=== PATIENT | male | born 1950 | race Caucasian/White ===

== ENCOUNTER 2022-10-28 07:00 | Observation (INO) | payer OTHER, MEDICARE, SELFPAY ==
[2022-10-28] VITALS (33 sets, daily range): BP systolic 92–202; BP diastolic 51–104; PULSE 52–70; RESP 10–19; TEMP 36–37; O2SAT 90–98
--- NOTE | 2022-10-28 06:45 | RT.EKG_ITS ---
APPROVED REPORT Exam: Resting ECG Reason for Exam: ams Patient Location: E HR:58 bpm ECG Measurements Heart Rate 58 AXIS NE 194 P 24 QRSd 97 QRS -33 QT 424 T 44 QTc 417 Conclusion Sinus bradycardia...rate< 60 Left ventricular hypertrophy...multiple voltage criteria sinus clif[place], left axis
--- NOTE | 2022-10-28 07:00 | DI.RAD_ITS ---
Exam(s) XR CHEST 1V IN DI DEPT EXAM: XR CHEST 1V IN DI DEPT CLINICAL HISTORY: AMS. TECHNIQUE: 2D digital imaging was performed. COMPARISON: MR MR BRAIN WO CONTRAST from 12/05/[address] HEAD WO CONTRAST from 12/28/2016 FINDINGS: Single AP portable view. Heart size is mildly enlarged. Mediastinum not widened. Symmetrically increased markings are noted throughout both lung tran, not associated with obvious pleural effusions. There is also platelike atelectasis in the right lung base. Some confluent infiltrate is seen adjacent to the minor fissure in the right upper lobe. Nonacute right rib fracture noted IMPRESSION: Mild cardiomegaly. Increased interstitial markings throughout both lung tran. Probable element of pulmonary edema cannot exclude infectious etiology. There are no obvious pleural effusions evident on this single portable view. DATA REPOSITORY: RADIATION DOSE DELIVERED:
--- NOTE | 2022-10-28 07:00 | DI.CT_ITS ---
Exam(s) CT HEAD WO EXAM: CT HEAD WO CLINICAL HISTORY: altered mental status, on AC. TECHNIQUE: Imaging Protocol: Axial computed tomography images with coronal and sagittal reformatted images were created and reviewed COMPARISON: CT CT HEAD WO CONTRAST from 12/28/2016outside institution. Prior outside institution MR I also reviewed. FINDINGS: There are no skull fractures. There is no fluid in the visualized paranasal sinuses. There is no evidence of intracranial hemorrhage, mass effect, or shift of midline structures. There are no extra-axial fluid collections. Ventricular size is slightly prominent but not at a proportion when compared to the overlying cortical sulci. IMPRESSION: No acute intracranial findings on this noninfused CT scan of the brain. Clinically indicated follow-up MRI with diffusion imaging can be performed Called by myself to ER provider. RADIATION DOSE DELIVERED: 792.17mGy.cm Total DLP DATA REPOSITORY: All CT scans at this facility are submitted to the National Radiology Data Registry (NRDR) Dose Index Registry (DIR) with the [employer] ([employer]). RADIATION OPTIMIZATION: All CT scans at this facility use at least one of these dose optimization te chniques: automated exposure control; mA and/or kV adjustment per patient size (includes targeted exa ms where dose is matched to clinical indication); or iterative reconstruction.
--- NOTE | 2022-10-28 07:12 | W.ED.GENAD ---
Discharge Plan Discharge Details Chief Complaint: AMS/LOC Primary Care Provider: Luis Fortune ED Provider: Nawaf Stone Home Meds and New Rx's Prescriptions: No Action citalopram 10 mg tablet 10 mg PO DAILY Eliquis 5 mg tablet 5 mg PO BID levothyroxine 137 mcg capsule 137 mcg PO DAILY metoprolol succinate 25 mg tablet extended release 24 hr 25 mg PO DAILY pravastatin 20 mg tablet 20 mg PO DAILY quetiapine [Seroquel] 50 mg tablet 50 mg PO QHS quetiapine [Seroquel] 25 mg tablet 25 mg PO DAILY PRN tamsulosin 0.4 mg capsule 0.4 mg PO DAILY Medical Decision Making 72-year-old male history of Alzheimer's dementia, hypothyroidism, found with decreased responsiveness by his this morning, last seen normal at 11 PM, similar event in the past per without explanation, no recent illness no recent hospitalization no recent change in medications, no trauma, patient not responding to verbal stimuli, he is responding to painful stimuli as he reacted when EMS cardiac leads were removed patient responded with ouch and moved his extremities towards the painful stimulus; patient is afebrile nontoxic, hemodynamically stable, no focal deficits noted, does appear to have slightly dry oral mucosa, no external signs of trauma; differential is broad consider worsening baseline dementia versus nonconvulsive seizure versus dehydration versus infectious etiology such as viral illness pneumonia or UTI must also consider intracranial hemorrhage given anticoagulation, lower suspicion for encephalitis or meningitis, lower suspicion for CVA, must also consider behavioral versus hypothyroidism. Will obtain screening labs EKG chest x-ray CT head toxicologic labs troponin urinalysis TSH T4, light fluid given signs of mild dehydration, disposition pending reassessment of patient HPI General Date/Time Provider Initiated Documentation: 10/28/22 07:05. HPI Narrative: 72-year-old male history of Alzheimer's, hypothyroidism, presents with decreased responsiveness found by to be asleep slumped over in his chair, last seen normal around 11 PM last night. Per patient has had events like this in the past. No recent injuries no recent illness no sick contacts. No changes in medication Related Data Home Medications Medication Instructions Recorded Confirmed apixaban 5 mg tablet (Eliquis) 5 mg PO BID 05/23/22 citalopram 10 mg tablet 10 mg PO DAILY 05/23/22 levothyroxine 137 mcg capsule 137 mcg PO DAILY 05/23/22 metoprolol succinate 25 mg 25 mg PO DAILY 05/23/22 tablet,extended release 24 hr pravastatin 20 mg tablet 20 mg PO DAILY 05/23/22 quetiapine 25 mg tablet (Seroquel) 25 mg PO DAILY PRN 05/23/22 quetiapine 50 mg tablet (Seroquel) 50 mg PO QHS 05/23/22 tamsulosin 0.4 mg capsule 0.4 mg PO DAILY 05/23/22 Review of Systems Narrative: Review of Systems Constitutional: Altered mental status Eyes: negative ENT: negative Cardiovascular: negative Respiratory: negative Gastrointestinal: negative : negative Musculoskeletal: negative Skin: negative Neurologic: Altered mental status Psych: negative [facility] Medical History (Updated 05/21/22 @ 14:48 by Vangie Barnett) Alzheimer disease Calculus (=stone) Pulmonary embolus Sigmoidoscopy performed Thyroid disease Surgical History (Updated 05/21/22 @ 14:48 by Vangie Barnett) H/O thumb surgery H/O wrist surgery History of esophagogastroduodenoscopy (EGD) Hx of colonoscopy Hx of umbilical hernia repair S/P cystoscopy Social History (Updated 05/23/22 @ 14:22 by Emilee Pollard RN, RN) Smoking/Tobacco Use Status: Former Tobacco Use Smoking risk assessment performed?: Yes Alcohol Intake: former Drug use: Current Sobriety Substance use type: marijuana Household members: spouse Exam Narrative Exam Narrative: Physical Examination General: Eyes closed, not responding to verbal stimuli HEENT: normocephalic, atraumatic; PERRL, EOM intact, conjunctiva normal; no nasal discharge; moist mucous membranes, slight drying of oral mucosa Neck: supple, trachea midline; full ROM Chest: normal to inspection Respiratory: normal respiratory effort, speaking in full sentences, clear to auscultation, no wheezing, rales or rhonchi Cardiac: regular rate, regular rhythm, S1S2 intact, no murmurs rubs or gallops GI: abdomen soft, non-tender, non-distended; no palpable mass or hepatosplenomegaly Skin: no lesions, rashes or trauma appreciated Neuro: Not responding to verbal stimuli not following commands, patient is responding to painful stimuli will say ouch and move extremities
[2022-10-28] MEDS: Normal Saline 500 ML 1000 ML IV (07:23)
[2022-10-28 07:31] LABS: BE (Venous) 3 mmol/L (-2-3); HCO3 (Venous) 29 mmol/L (23-28); O2 Sat (Venous) 53 %; TCO2 (Venous) 26 mmol/L (24-29); pCO2 (Venous) 50 mmHg (41-51); pH (Venous) 7.37 (7.31-7.41); pO2 (Venous) 31 mmHg
[2022-10-28 07:32] LABS: Abs Immature Grans 0.02 10^3/uL (0.0-0.06); Absolute Basophil Count 0.01 10^3/uL (0.0-0.2); Absolute Lymphocyte Count 1.08 10^3/uL (1.2-3.4); Absolute Monocyte Count 0.66 10^3/uL (0.1-0.8); Absolute Neutrophil Count 6.43 10^3/uL (1.2-6.7); Basophils % 0.1; HCT 43.4 % (40.0-50.0); HGB 14.3 g/dL (13.5-17.5); Immature Grans % 0.2; Lymphocytes % 13.2; MCH 30.2 pg (27.0-33.0); MCHC 32.9 % (32.0-36.0); MCV 92 fL (80-95); Neutrophils % 78.5; Platelet Count 160 10^3/uL (130-400); RBC 4.74 10^6/uL (4.36-5.78); RDW 13.5 % (11.8-14.1); RDW-SD 45.8 fL
--- NOTE | 2022-10-28 07:35 | W.EDPROG ---
Date of service: 10/28/22 Time of Service: 07:35 Medical Decision Making This patient was signed out to me. Please see previous notes for H&P and initial eval. In brief, 72yo M with hx dementia presenting with altered mental status. Responsive to painful stimuli; not responsive to voice which is not his baseline. No clear etiology suggested from history. Pending labs, urine, and head CT. Labs reviewed as below, CBC & CMP unremarkable, serum toxicology negative, troponin negative, CK slightly elevated (unclear significance), UA suggestive of UTI. Head CT independently reviewed; no intracranial hemmoraghe, agree with radiology read below. CXR independently reviewed, diffuse infiltrate with no focal pneumonia, agree with radiology read below. Will treat with IV ceftriaxone for UTI. On reassesment patient remains significantly altered from baseline; alert, eyes open, but will not respond to voice or follow commands. Discussed with hospitalist and admitted to medicine service, awaiting transfer to the floor. Imaging Data Radiologic Study: Imaging: CT Scan Radiologist's impression: IMPRESSION: No acute intracranial findings on this noninfused CT scan of the brain. Clinically indicated follow-up MRI with diffusion imaging can be performed Radiologic Study #2: Imaging: X-Ray Radiologist's impression: IMPRESSION: Mild cardiomegaly.? Increased interstitial markings throughout both lung tran.? Probable element of pulmonary edema cannot exclude infectious etiology.? There are no obvious pleural effusions evident on this single portable view Lab Data Lab results reviewed: Yes I reviewed the patient's lab results. Labs: 10/28/22 07:53 Urine - Reflex from Ua Urine Culture - Pending Laboratory Tests Range/Units 10/28/22 10/28/22 10/28/22 07:18 07:23 07:23 WBC (4.4-10.8) 10^3/uL RBC (4.36-5.78) 10^6/uL Hgb (13.5-17.5) g/dL Hct (40.0-50.0) % MCV (80-95) fL MCH (27.0-33.0) pg MCHC (32.0-36.0) % RDW (11.8-14.1) % Plt Count (130-400) 10^3/uL MPV (8.0-11.0) fL Immature Gran % Neutrophils % Lymphocytes % Monocytes % Eosinophils % Basophils % Nucleated RBC % (0.0-0.3) % Absolute Neutrophils (1.2-6.7) 10^3/uL Absolute Lymphocytes (1.2-3.4) 10^3/uL Absolute Monocytes (0.1-0.8) 10^3/uL Absolute Eosinophils (0.0-0.7) 10^3/uL Absolute Basophils (0.0-0.2) 10^3/uL PT (9.3-11.0) sec INR (0.9-1.1) APTT (21.5-31.9) sec VBG pH (7.31-7.41) 7.37 VBG pCO2 (41-51) mmHg 50 VBG pO2 mmHg 31 VBG HCO3 (23-28) mmol/L 29 H VBG Total CO2 (24-29) mmol/L 26 VBG O2 Saturation % 53 VBG Base Excess (-2-3) mmol/L 3 Sodium (136-145) mmol/L Potassium (3.5-5.1) mmol/L Chloride (98-107) mmol/L Carbon Dioxide (21.0-32.0) mmol/L Anion Gap (3-11) mmol/L BUN (7-18) mg/dL Creatinine (0.70-1.30) mg/dL Est GFR (CKD-EPI 2020) (mL/min/1.73m2) Glucose (74-106) mg/dL Calcium (8.5-10.1) mg/dL Magnesium (1.8-2.4) mg/dL Total Bilirubin (0.2-1.0) mg/dL AST (15-37) U/L ALT (16-63) U/L Alkaline Phosphatase (46-116) U/L Creatine Kinase (39-308) U/L Troponin I Cancelled Total Protein (6.4-8.2) g/dL Albumin (3.4-5.0) g/dL TSH Cancelled Urine Color (Yellow) Urine Clarity (Clear) Urine pH (5-8) Ur Specific [place] (1.005-1.025) Urine Protein (Negative) mg/dL Urine Ketones (Negative) mg/dL Urine Blood (Negative) Urine Nitrite (Negative) Urine Bilirubin (Negative) Urine Urobilinogen (Up to 0.2) mg/dL Ur Leukocyte Esterase (Negative) Urine RBC (0-2) HPF Urine WBC (0-5) HPF Ur Epithelial Cells (Negative) HPF Urine Crystals (Negative) HPF Urine Bacteria (Negative) HPF Urine Casts (Negative) LPF Urine Mucus (Negative) Ur Culture Indicated? Urine Glucose (Negative) mg/dL Salicylates (<2.8) mg/dL Urine Opiates Screen (Negative) Urine Methadone Screen (Negative) Acetaminophen (10-30) ug/mL Ur Barbiturates Screen (Negative) Ur Tricyclics Screen (Negative) Ur Amphetamines Screen (Negative) U Benzodiazepines Scrn (Negative) Urine Cocaine Screen (Negative) Ur THC Screen (Negative) Ethyl Alcohol (<10) mg/dL Range/Units 10/28/22 10/28/22 10/28/22 07:23 07:23 07:23 WBC (4.4-10.8) 10^3/uL 8.20 RBC (4.36-5.78) 10^6/uL 4.74 Hgb (13.5-17.5) g/dL 14.3 Hct (40.0-50.0) % 43.4 MCV (80-95) fL 92 MCH (27.0-33.0) pg 30.2 MCHC (32.0-36.0) % 32.9 RDW (11.8-14.1) % 13.5 Plt Count (130-400) 10^3/uL 160 MPV (8.0-11.0) fL 11.0 Immature Gran % 0.2 Neutrophils % 78.5 Lymphocytes % 13.2 Monocytes % 8.0 Eosinophils % 0.0 Basophils % 0.1 Nucleated RBC % (0.0-0.3) % 0.0 Absolute Neutrophils (1.2-6.7) 10^3/uL 6.43 Absolute Lymphocytes (1.2-3.4) 10^3/uL 1.08 L Absolute Monocytes (0.1-0.8) 10^3/uL 0.66 Absolute Eosinophils (0.0-0.7) 10^3/uL 0.00 Absolute Basophils (0.0-0.2) 10^3/uL 0.01 PT (9.3-11.0) sec INR (0.9-1.1) APTT (21.5-31.9) sec VBG pH (7.31-7.41) VBG pCO2 (41-51) mmHg VBG pO2 mmHg VBG HCO3 (23-28) mmol/L VBG Total CO2 (24-29) mmol/L VBG O2 Saturation % VBG Base Excess (-2-3) mmol/L Sodium (136-145) mmol/L 143 Potassium (3.5-5.1) mmol/L 4.2 Chloride (98-107) mmol/L 105 Carbon Dioxide (21.0-32.0) mmol/L 27.9 Anion Gap (3-11) mmol/L 10.1 BUN (7-18) mg/dL 20 H Creatinine (0.70-1.30) mg/dL 1.2 Est GFR (CKD-EPI 2020) (mL/min/1.73m2) 63.46 Glucose (74-106) mg/dL 135 H Calcium (8.5-10.1) mg/dL 10.2 H Magnesium (1.8-2.4) mg/dL 2.2 Total Bilirubin (0.2-1.0) mg/dL 0.5 AST (15-37) U/L 23 ALT (16-63) U/L 19 Alkaline Phosphatase (46-116) U/L 91 Creatine Kinase (39-308) U/L 631 H Troponin I < 50 Total Protein (6.4-8.2) g/dL 7.3 Albumin (3.4-5.0) g/dL 3.3 L TSH 1.62 Urine Color (Yellow) Urine Clarity (Clear) Urine pH (5-8) Ur Specific [place] (1.005-1.025) Urine Protein (Negative) mg/dL Urine Ketones (Negative) mg/dL Urine Blood (Negative) Urine Nitrite (Negative) Urine Bilirubin (Negative) Urine Urobilinogen (Up to 0.2) mg/dL Ur Leukocyte Esterase (Negative) Urine RBC (0-2) HPF Urine WBC (0-5) HPF Ur Epithelial Cells (Negative) HPF Urine Crystals (Negative) HPF Urine Bacteria (Negative) HPF Urine Casts (Negative) LPF Urine Mucus (Negative) Ur Culture Indicated? Urine Glucose (Negative) mg/dL Salicylates (<2.8) mg/dL < 2.8 Urine Opiates Screen (Negative) Urine Methadone Screen (Negative) Acetaminophen (10-30) ug/mL < 2 Ur Barbiturates Screen (Negative) Ur Tricyclics Screen (Negative) Ur Amphetamines Screen (Negative) U Benzodiazepines Scrn (Negative) Urine Cocaine Screen (Negative) Ur THC Screen (Negative) Ethyl Alcohol (<10) mg/dL < 3.0 Range/Units 10/28/22 10/28/22 10/28/22 07:23 07:53 07:53 WBC (4.4-10.8) 10^3/uL RBC (4.36-5.78) 10^6/uL Hgb (13.5-17.5) g/dL Hct (40.0-50.0) % MCV (80-95) fL MCH (27.0-33.0) pg MCHC (32.0-36.0) % RDW (11.8-14.1) % Plt Count (130-400) 10^3/uL MPV (8.0-11.0) fL Immature Gran % Neutrophils % Lymphocytes % Monocytes % Eosinophils % Basophils % Nucleated RBC % (0.0-0.3) % Absolute Neutrophils (1.2-6.7) 10^3/uL Absolute Lymphocytes (1.2-3.4) 10^3/uL Absolute Monocytes (0.1-0.8) 10^3/uL Absolute Eosinophils (0.0-0.7) 10^3/uL Absolute Basophils (0.0-0.2) 10^3/uL PT (9.3-11.0) sec 10.4 INR (0.9-1.1) 1.0 APTT (21.5-31.9) sec 23.2 VBG pH (7.31-7.41) VBG pCO2 (41-51) mmHg VBG pO2 mmHg VBG HCO3 (23-28) mmol/L VBG Total CO2 (24-29) mmol/L VBG O2 Saturation % VBG Base Excess (-2-3) mmol/L Sodium (136-145) mmol/L Potassium (3.5-5.1) mmol/L Chloride (98-107) mmol/L Carbon Dioxide (21.0-32.0) mmol/L Anion Gap (3-11) mmol/L BUN (7-18) mg/dL Creatinine (0.70-1.30) mg/dL Est GFR (CKD-EPI 2020) (mL/min/1.73m2) Glucose (74-106) mg/dL Calcium (8.5-10.1) mg/dL Magnesium (1.8-2.4) mg/dL Total Bilirubin (0.2-1.0) mg/dL AST (15-37) U/L ALT (16-63) U/L Alkaline Phosphatase (46-116) U/L Creatine Kinase (39-308) U/L Troponin I Total Protein (6.4-8.2) g/dL Albumin (3.4-5.0) g/dL TSH Urine Color (Yellow) Yellow Urine Clarity (Clear) Clear Urine pH (5-8) 5.5 Ur Specific [place] (1.005-1.025) >= 1.030 H Urine Protein (Negative) mg/dL 30 H Urine Ketones (Negative) mg/dL 15 H Urine Blood (Negative) Negative Urine Nitrite (Negative) Negative Urine Bilirubin (Negative) Small H Urine Urobilinogen (Up to 0.2) mg/dL 1.0 H Ur Leukocyte Esterase (Negative) Small H Urine RBC (0-2) HPF Negative Urine WBC (0-5) HPF 20-50 H Ur Epithelial Cells (Negative) HPF Few Urine Crystals (Negative) HPF Negative Urine Bacteria (Negative) HPF Moderate Urine Casts (Negative) LPF 0-2 Hyaline Urine Mucus (Negative) Negative Ur Culture Indicated? Yes Urine Glucose (Negative) mg/dL Negative Salicylates (<2.8) mg/dL Urine Opiates Screen (Negative) Negative Urine Methadone Screen (Negative) Negative Acetaminophen (10-30) ug/mL Ur Barbiturates Screen (Negative) Negative Ur Tricyclics Screen (Negative) Negative Ur Amphetamines Screen (Negative) Negative U Benzodiazepines Scrn (Negative) Negative Urine Cocaine Screen (Negative) Negative Ur THC Screen (Negative) Negative Ethyl Alcohol (<10) mg/dL Sign Out Sign Out Data: Sign Out Comment: AMS, hx of dementia and hypothyroid; pending labs and imaging, reassessment of mental status Last updated by Nawaf Stone MD at 10/28/22 07:22 Discharge Plan Disposition Patient Disposition: Admit to [facility] Discharge Details Chief Complaint: AMS/LOC Clinical Impression: Urinary tract infection Primary Care Provider: uLis Fortune ED Provider: Nidhi Palma Home Meds and New Rx's Prescriptions: No Action citalopram 10 mg tablet 10 mg PO DAILY Eliquis 5 mg tablet 5 mg PO BID Patient Comments: states not taking. levothyroxine 137 mcg capsule 137 mcg PO DAILY metoprolol succinate 25 mg tablet extended release 24 hr 25 mg PO DAILY pravastatin 20 mg tablet 20 mg PO DAILY quetiapine [Seroquel] 50 mg tablet 50 mg PO QHS quetiapine [Seroquel] 25 mg tablet 25 mg PO DAILY PRN tamsulosin 0.4 mg capsule 0.4 mg PO DAILY
[2022-10-28 07:45] LABS: PTT Activated 23.2 sec (21.5-31.9); Prothrombin Time 10.4 sec (9.3-11.0)
[2022-10-28 07:48] LABS: Salicylate < 2.8 mg/dL (<2.8)
[2022-10-28 07:49] LABS: Acetaminophen < 2 ug/mL (10-30)
[2022-10-28 07:59] LABS: ALT 19 U/L (16-63); AST 23 U/L (15-37); Albumin 3.3 g/dL (3.4-5.0); Alkaline Phosphatase 91 U/L (46-116); Anion Gap 10.1 mmol/L (3-11); BUN 20 mg/dL (7-18); Bilirubin, Total 0.5 mg/dL (0.2-1.0); CO2 27.9 mmol/L (21.0-32.0); CREATININE 1.2 mg/dL (0.70-1.30); Calcium 10.2 mg/dL (8.5-10.1); Chloride 105 mmol/L (98-107); Creatine Kinase 631 U/L (39-308); ETHANOL BLOOD < 3.0 mg/dL (<10); Estimated GFR 63.46 (mL/min/1.73m2); Glucose 135 mg/dL (74-106); Magnesium 2.2 mg/dL (1.8-2.4); Potassium 4.2 mmol/L (3.5-5.1); Sodium 143 mmol/L (136-145); TSH (W/Ref FT4) 1.62 uIU/mL (0.36-3.74); Total Protein 7.3 g/dL (6.4-8.2); Troponin I < 50 ng/L (<or=60)
[2022-10-28 08:08] LABS: Bilirubin Small (Negative); Blood Negative (Negative); Clarity Clear (Clear); Glucose Negative (Negative); Ketones 15 mg/dL (Negative); Leukocyte Esterase Small (Negative); Nitrite Negative (Negative); Specific Gravity >= 1.030 (1.005-1.025); pH 5.5 (5-8)
[2022-10-28 08:18] LABS: WBC 20-50 HPF (0-5)
[2022-10-28 08:19] LABS: *AMPHETAMINES SCREEN URINE Negative (Negative); *BARBITURATES SCREEN URINE Negative (Negative); *BENZODIAZEPINES SCREEN URINE Negative (Negative); Bacteria Moderate HPF (Negative); C & S Indicated? Yes; Cannabinoids THC Negative (Negative); Casts 0-2 Hyaline LPF (Negative); Cocaine Screen,Urine Negative (Negative); Crystals Negative HPF (Negative); Epithelial Cells Few HPF (Negative); METHADONE URINE SCREEN Negative (Negative); Mucus Negative (Negative); OPIATES URINE SCREEN Negative (Negative); RBC Negative HPF (0-2)
[2022-10-28 08:25] LABS: Tricyclic Antidepressants Negative (Negative)
--- NOTE | 2022-10-28 08:31 | DI.RAD_ITS ---
Exam(s) XR CHEST 1V IN DI DEPT EXAM: XR CHEST 1V IN DI DEPT CLINICAL HISTORY: altered mental status. TECHNIQUE: 2D digital imaging was performed. COMPARISON: CR XR CHEST 1V IN DI DEPT from 10/28/2022 FINDINGS: Single lateral view. No confluent infiltrates evident on this single lateral view and no obvious pleural effusions IMPRESSION: As above. Recommend nonportable upright PA view DATA REPOSITORY: RADIATION DOSE DELIVERED:
[2022-10-28] MEDS: cefTRIAXone 1 GM/50 ML BAG IVPB (08:47)
[2022-10-28 09:52] LABS: NT-proBNP 99 pg/mL (<300)
--- NOTE | 2022-10-28 10:24 | DI.RAD_ITS ---
Exam(s) XR CHEST 1V IN DI DEPT EXAM: XR CHEST 1V IN DI DEPT CLINICAL HISTORY: altered mental status. TECHNIQUE: 2D digital imaging was performed. COMPARISON: No exams were available for comparison FINDINGS: Single PA view Heart size is upper normal. The mediastinum is not widened. COPD findings but no evidence of pulmonary edema, as per request. No pleural effusions. No Amy B lines evident. IMPRESSION: No evidence of pulmonary edema. No pleural effusions. DATA REPOSITORY: RADIATION DOSE DELIVERED:
[2022-10-28] MEDS: Enoxaparin 40 MG/0.4 ML SYR SC (11:45)
--- NOTE | 2022-10-28 13:55 | W.PM.HP.N ---
Date of service: 10/28/22 Time of Service: 13:55 Assessment and Plan Assessment and plan (1) Alzheimer disease: Assessment and plan: Episode of decreased LOC. Now appears to be back at baseline. He is up in chair and drinking fluids / eating jello. (2) Thyroid disease: Assessment and plan: Cont home regimen. (3) Urinary tract infection: Status: Acute Assessment and plan: Culture pending. Rocephin 1gram IV QAM. WBC count normal. Afebrile. Not hypotensive. (4) Discharge planning issues: Status: Acute Assessment and plan: Soon after admission, patient appeared to to be at baseline. Possibly d/c tomorrow on oral antibiotics after 2nd dose of rocephin History of Present Illness History of Present Illness Chief Complaint: Decreased LOC Narrative: This is a 72 yo male with a PMH of Alzheimer's dementia, pulmonary embolism, hypothyroidism. He was found by his on the AM of admission slumped over in his chair. He was last seen well at 11PM. He did not respond to her verbal stimuli. EMS called. She endorsed that similar episodes have occured in the past. In the ED he responded by saying ouch when the cardiac leads placed by EMS. He was afebrile and hemodynamically stable w/o focal deficits. CXR showed mild cardiomegaly.? Increased interstitial markings throughout both lung tran.? Probable element of pulmonary edema cannot exclude infectious etiology CT head w/o acute findings. CBC unremarkable. Lytes normal. Creatinine 1.2. NTProBNP 99. His states he eats well but she has to prompt him to drink adequate amounts of liquids. Rocephin initiated in the ED. PFSH All Active Problems (Updated 10/28/22 @ 14:25 by Nawaf Pak MD) Discharge planning issues (Acute) Urinary tract infection (Acute) Medical History (Updated 10/28/22 @ 14:25 by Nawaf Pak MD) Alzheimer disease Calculus (=stone) Pulmonary embolus Sigmoidoscopy performed Thyroid disease Surgical History (Updated 05/21/22 @ 14:48 by Vangie Barnett) H/O thumb surgery H/O wrist surgery History of esophagogastroduodenoscopy (EGD) Hx of colonoscopy Hx of umbilical hernia repair S/P cystoscopy Social History (Updated 05/23/22 @ 14:22 by Emilee Pollard RN, RN) Smoking/Tobacco Use Status: Former Tobacco Use Smoking risk assessment performed?: Yes Alcohol Intake: former Drug use: Current Sobriety Substance use type: marijuana Household members: spouse Housing: house Meds Allergies and Home Medications Allergies Allergy/AdvReac Type Severity Reaction Status Date / Time No Known Allergies Allergy Unverified 10/28/22 07:37 Home Medications Medication Instructions Recorded Confirmed Type apixaban 5 mg tablet (Eliquis) 5 mg PO BID 05/23/22 History citalopram 10 mg tablet 10 mg PO DAILY 05/23/22 10/28/22 History levothyroxine 137 mcg capsule 137 mcg PO DAILY 05/23/22 10/28/22 History metoprolol succinate 25 mg 25 mg PO DAILY 05/23/22 10/28/22 History tablet,extended release 24 hr pravastatin 20 mg tablet 20 mg PO DAILY 05/23/22 10/28/22 History quetiapine 25 mg tablet (Seroquel) 25 mg PO DAILY PRN 05/23/22 10/28/22 History quetiapine 50 mg tablet (Seroquel) 50 mg PO QHS 05/23/22 10/28/22 History tamsulosin 0.4 mg capsule 0.4 mg PO DAILY 05/23/22 10/28/22 History Exam Narrative Exam Narrative: Gen: Pt is lying supine. Appears comfortable. Opens eyes and interacts periodically. He smiles at appropirate times. HEENT: sclera clear. MMM Neck: No JVD. Lungs: clear. Nonlabored breathing. CV: RRR. No murmurs. Abd: soft, NT, ND. Exts: No edema or calf tenderness. Neuro: Phillip. No focal motor deficits. No facial droop. Pscyh: oriented to person. Cooperative. Appearance is grossly normal. Results Labs 10/28/22 07:23 10/28/22 07:23 Labs: Laboratory Results - last 24 hr 10/28/22 10/28/22 10/28/22 07:18 07:23 07:23 WBC RBC Hgb Hct MCV MCH MCHC RDW Plt Count MPV Immature Gran % Neutrophils % Lymphocytes % Monocytes % Eosinophils % Basophils % Nucleated RBC % Absolute Neutrophils Absolute Lymphocytes Absolute Monocytes Absolute Eosinophils Absolute Basophils PT INR APTT VBG pH 7.37 VBG pCO2 50 VBG pO2 31 VBG HCO3 29 H VBG Total CO2 26 VBG O2 Saturation 53 VBG Base Excess 3 Sodium Potassium Chloride Carbon Dioxide Anion Gap BUN Creatinine Est GFR (CKD-EPI 2020) Glucose Calcium Magnesium Total Bilirubin AST ALT Alkaline Phosphatase Creatine Kinase Troponin I Cancelled NT-Pro-B Natriuret Pep Total Protein Albumin TSH Cancelled Urine Color Urine Clarity Urine pH Ur Specific [place] Urine Protein Urine Ketones Urine Blood Urine Nitrite Urine Bilirubin Urine Urobilinogen Ur Leukocyte Esterase Urine RBC Urine WBC Ur Epithelial Cells Urine Crystals Urine Bacteria Urine Casts Urine Mucus Ur Culture Indicated? Urine Glucose Salicylates Urine Opiates Screen Urine Methadone Screen Acetaminophen Ur Barbiturates Screen Ur Tricyclics Screen Ur Amphetamines Screen U Benzodiazepines Scrn Urine Cocaine Screen Ur THC Screen Ethyl Alcohol 10/28/22 10/28/22 10/28/22 07:23 07:23 07:23 WBC 8.20 RBC 4.74 Hgb 14.3 Hct 43.4 MCV 92 MCH 30.2 MCHC 32.9 RDW 13.5 Plt Count 160 MPV 11.0 Immature Gran % 0.2 Neutrophils % 78.5 Lymphocytes % 13.2 Monocytes % 8.0 Eosinophils % 0.0 Basophils % 0.1 Nucleated RBC % 0.0 Absolute Neutrophils 6.43 Absolute Lymphocytes 1.08 L Absolute Monocytes 0.66 Absolute Eosinophils 0.00 Absolute Basophils 0.01 PT INR APTT VBG pH VBG pCO2 VBG pO2 VBG HCO3 VBG Total CO2 VBG O2 Saturation VBG Base Excess Sodium 143 Potassium 4.2 Chloride 105 Carbon Dioxide 27.9 Anion Gap 10.1 BUN 20 H Creatinine 1.2 Est GFR (CKD-EPI 2020) 63.46 Glucose 135 H Calcium 10.2 H Magnesium 2.2 Total Bilirubin 0.5 AST 23 ALT 19 Alkaline Phosphatase 91 Creatine Kinase 631 H Troponin I < 50 NT-Pro-B Natriuret Pep Total Protein 7.3 Albumin 3.3 L TSH 1.62 Urine Color Urine Clarity Urine pH Ur Specific [place] Urine Protein Urine Ketones Urine Blood Urine Nitrite Urine Bilirubin Urine Urobilinogen Ur Leukocyte Esterase Urine RBC Urine WBC Ur Epithelial Cells Urine Crystals Urine Bacteria Urine Casts Urine Mucus Ur Culture Indicated? Urine Glucose Salicylates < 2.8 Urine Opiates Screen Urine Methadone Screen Acetaminophen < 2 Ur Barbiturates Screen Ur Tricyclics Screen Ur Amphetamines Screen U Benzodiazepines Scrn Urine Cocaine Screen Ur THC Screen Ethyl Alcohol < 3.0 10/28/22 10/28/22 10/28/22 07:23 07:23 07:53 WBC RBC Hgb Hct MCV MCH MCHC RDW Plt Count MPV Immature Gran % Neutrophils % Lymphocytes % Monocytes % Eosinophils % Basophils % Nucleated RBC % Absolute Neutrophils Absolute Lymphocytes Absolute Monocytes Absolute Eosinophils Absolute Basophils PT 10.4 INR 1.0 APTT 23.2 VBG pH VBG pCO2 VBG pO2 VBG HCO3 VBG Total CO2 VBG O2 Saturation VBG Base Excess Sodium Potassium Chloride Carbon Dioxide Anion Gap BUN Creatinine Est GFR (CKD-EPI 2020) Glucose Calcium Magnesium Total Bilirubin AST ALT Alkaline Phosphatase Creatine Kinase Troponin I NT-Pro-B Natriuret Pep 99 Total Protein Albumin TSH Urine Color Urine Clarity Urine pH Ur Specific [place] Urine Protein Urine Ketones Urine Blood Urine Nitrite Urine Bilirubin Urine Urobilinogen Ur Leukocyte Esterase Urine RBC Urine WBC Ur Epithelial Cells Urine Crystals Urine Bacteria Urine Casts Urine Mucus Ur Culture Indicated? Urine Glucose Salicylates Urine Opiates Screen Negative Urine Methadone Screen Negative Acetaminophen Ur Barbiturates Screen Negative Ur Tricyclics Screen Negative Ur Amphetamines Screen Negative U Benzodiazepines Scrn Negative Urine Cocaine Screen Negative Ur THC Screen Negative Ethyl Alcohol 10/28/22 07:53 WBC RBC Hgb Hct MCV MCH MCHC RDW Plt Count MPV Immature Gran % Neutrophils % Lymphocytes % Monocytes % Eosinophils % Basophils % Nucleated RBC % Absolute Neutrophils Absolute Lymphocytes Absolute Monocytes Absolute Eosinophils Absolute Basophils PT INR APTT VBG pH VBG pCO2 VBG pO2 VBG HCO3 VBG Total CO2 VBG O2 Saturation VBG Base Excess Sodium Potassium Chloride Carbon Dioxide Anion Gap BUN Creatinine Est GFR (CKD-EPI 2020) Glucose Calcium Magnesium Total Bilirubin AST ALT Alkaline Phosphatase Creatine Kinase Troponin I NT-Pro-B Natriuret Pep Total Protein Albumin TSH Urine Color Yellow Urine Clarity Clear Urine pH 5.5 Ur Specific [place] >= 1.030 H Urine Protein 30 H Urine Ketones 15 H Urine Blood Negative Urine Nitrite Negative Urine Bilirubin Small H Urine Urobilinogen 1.0 H Ur Leukocyte Esterase Small H Urine RBC Negative Urine WBC 20-50 H Ur Epithelial Cells Few Urine Crystals Negative Urine Bacteria Moderate Urine Casts 0-2 Hyaline Urine Mucus Negative Ur Culture Indicated? Yes Urine Glucose Negative Salicylates Urine Opiates Screen Urine Methadone Screen Acetaminophen Ur Barbiturates Screen Ur Tricyclics Screen Ur Amphetamines Screen U Benzodiazepines Scrn Urine Cocaine Screen Ur THC Screen Ethyl Alcohol Last Vital Signs Temp 36.7 C 10/28/22 11:17 Pulse 68 10/28/22 11:17 Resp 16 10/28/22 11:17 BP 202/104 H 10/28/22 11:18 Pulse Ox 96 10/28/22 11:17 Time Spent Time spent with Patient: 40-54 minutes Time was spent: preparing to see the patient(eg.review tests), obtaining and/or reviewing separately otained hiistory, ordering medications,tests, procedures, referring, communicating with other health medicare biller, indepentently interpreting results, counseling the patient and care coordination
--- NOTE | 2022-10-28 13:59 | PT.INIE ---
PT Notes Visit Reasons: UTI, Altered mental status Inpatient Physical Therapy Evaluation Date: 10/28/22 Referring Doctor: Dr. Pak PT Orders: PT CONSULT: limited ability to ambulate Precautions: standard Patient Profile/Admitting Diagnosis: Patient admitted after presenting to ER with altered mental status in the presence of Alzheimer's dementia. Diagnosed with UTI and admitted for medical management. Social History/Home Situation: Per ER note, patient lives with in private home. Patient unable to provide and specifics on home set up, baseline level of function. Equipment Owned/DME: unknown Subjective: Patient unable to provide subjective history. Responds to direct questions with garbled speech, poor word finding. Objective: General Observation: Resting in chair, utilizing fidget blanket. With elimination of blanket for assessment, patient attempts to remove IV line in LUE and hospital bracelet. Behavior ceases with placement of fidget blanket on lap. Mental Status: Alert. Not oriented to person, place or time. Pain: unable to verbalize ROM: Right Upper Extremity: Functionally demonstrates shoulder flexion to 90* bilat. Unable to follow commands for AROM or strength assessment. Left Upper Extremity: Functionally demonstrates shoulder flexion to 90* bilat. Unable to follow commands for AROM or strength assessment. Right Lower Extremity: Functionally demonstrates hip flexion to 90*. Able to demonstrate 0* knee extension with AAROM. Ankle motions grossly WFL passively. Left Lower Extremity: Functionally demonstrates hip flexion to 90*. Able to demonstrate 0* knee extension with AAROM. Ankle motions grossly WFL passively. Strength: Right Upper Extremity: unable to assess Left Upper Extremity: unable to assess Right Lower Extremity: unable to assess Left Lower Extremity: unable to assess Sensation: unable to assess Bed Mobility/Transfers: Attempted sit-stand transfer via various strategies. Patient unable to follow single step commands for completion. Gait: unable to assess Balance: Static Sitting: good Dynamic Sitting: good Static Standing: unable to assess Dynamic Standing: unable to assess Special Tests: Mobility Limitations Standardized Measure [facility] AM-PAC 6 clicks Basic Mobility Inpatient Short Form: unable to assess due to limited participation and inability to provide subjective history Informed Consent/Education: Patient instructed in purpose of PT consult and plan of care. Assessment: Patient is a 72 year old male referred to physical therapy services with the diagnosis of UTI. Patient presents with mobility impairments due to acute medical issues combined with underlying Alzheimer's dementia. He currently demonstrates the following impairment level findings: 1. inability to follow single step commands 2. decreased safety awareness Impairments are contributing to the following functional limitations: 1. unable to ambulate household distances 2. unable to independently perform ADLs Patient is assessed as Moderate [id number] complexity based on the following: History: as above Examination: functional limitations as above Presentation: evolving due to acute medical issues Decision Making: moderate complexity Goals: Goals X1 week 1. Supine-Sit : supervision 2. Sit-Supine : supervision 3. Sit-Stand : supervision 4. Stand-Sit : supervision 5. Bed-Chair : supervision with FWW 6. Chair-Bed : supervision with FWW 7. Gait : supervision with FWWx 50' Plan of Care/Treatment Plan: 1-2x/day, 7 days/week x 1 week. Plan of care has been reviewed with the ONLINE ADVERTISING ANALYST providing the service under Physical Therapy direction. Initiate Physical Therapy intervention for strengthening, bed mobility, transfers, gait, stairs, balance training, use of assistive device. DISCHARGE RECOMMENDATIONS: Home with family support TREATMENT CODE/TIME: 45767 (1:40 - 1:55) Neda Benavides, PT, DPT [facility] All Active Problems (Updated 10/28/22 @ 10:28 by Nidhi Palma MD) Urinary tract infection (Acute) Medical History (Updated 10/28/22 @ 10:28 by Nidhi Palma MD) Alzheimer disease Calculus (=stone) Pulmonary embolus Sigmoidoscopy performed Thyroid disease Surgical History (Updated 05/21/22 @ 14:48 by Vangie Barnett) H/O thumb surgery H/O wrist surgery History of esophagogastroduodenoscopy (EGD) Hx of colonoscopy Hx of umbilical hernia repair S/P cystoscopy
[2022-10-28] MEDS: Acetaminophen 325 MG TAB PO (15:06)
[2022-10-28] MEDS: Ketorolac 30 MG/ML VIAL IVP (16:03)
[2022-10-28] MEDS: Gabapentin 600 MG TAB PO (21:03)
[2022-10-28] MEDS: Erythromycin Ophth Oint 3.5 GM TUBE OU (21:03)
[2022-10-28] MEDS: Melatonin 3 MG TAB PO (21:08)
[2022-10-28] MEDS: traZODone 100 MG TAB PO (21:23)
[2022-10-28] MEDS: risperiDONE 1 MG TAB PO (21:23)
[2022-10-28] MEDS: Mirtazapine 15 MG TAB PO (21:23)
[2022-10-29] MEDS: Normal Saline 250 ML IV (00:03)
[2022-10-29 04:33] VITALS: BP 133/71; PULSE 57; RESP 16; TEMP 36.6; O2SAT 96
[2022-10-29 07:00] VITALS: PULSE 59
[2022-10-29 07:10] LABS: Anion Gap 7.1 mmol/L (3-11); BUN 18 mg/dL (7-18); CO2 27.9 mmol/L (21.0-32.0); CREATININE 1.1 mg/dL (0.70-1.30); Calcium 9.4 mg/dL (8.5-10.1); Chloride 108 mmol/L (98-107); Creatine Kinase 1126 U/L (39-308); Estimated GFR 70.44 (mL/min/1.73m2); Glucose 90 mg/dL (74-106); Potassium 3.7 mmol/L (3.5-5.1); Sodium 143 mmol/L (136-145)
[2022-10-29 07:54] VITALS: BP 162/78; PULSE 54; RESP 16; TEMP 36; O2SAT 96
[2022-10-29] MEDS: Normal Saline 500 ML 100 ML IV (08:43)
[2022-10-29] MEDS: cefTRIAXone 1 GM/50 ML BAG IVPB (08:44)
[2022-10-29] MEDS: Normal Saline Flush 10 ML SYR (08:44)
[2022-10-29] MEDS: Gabapentin 600 MG TAB PO ×2 (08:45→14:41)
[2022-10-29] MEDS: Metoprolol CR 25 MG TABCR 12.5 MG PO (08:45)
[2022-10-29] MEDS: Tamsulosin 0.4 MG CAPCR PO (08:45)
[2022-10-29] MEDS: Erythromycin Ophth Oint 3.5 GM TUBE OU ×2 (08:45→14:42)
[2022-10-29 11:09] VITALS: BP 137/79; PULSE 59; RESP 18; TEMP 36.7; O2SAT 96
--- NOTE | 2022-10-29 11:11 | DSE_ITS ---
Date of service: 10/29/22 Time of Service: 11:11 DS: Diagnosis Discharge Diagnosis (1) Alzheimer disease: (2) Thyroid disease: (3) Urinary tract infection: Status: Acute Discharge Plan Disposition Patient Disposition: Home Condition: Stable Discharge Details Reason For Visit: UTI, Altered mental status Admit Date/Time: 10/28/22 10:14 Admit Provider: Nawaf Pak Attending Provider: Nawaf Pak Primary Care Provider: Luis Fortune Hospital Course Hospital Course: This is a 72 yo male with a PMH of Alzheimer's dementia, pulmonary embolism, hypothyroidism.? He was found by his on the AM of admission slumped over in his chair altered. He was transported to the ED by EMS and slowly returned to his baseline. He was afebrile and hemodynamically stable w/o focal deficits. His work up concerning for UTI and he was started on Rocephin initiated in the ED. He remains stable and at his baseline, eating and drinking well, no dysrhythmias on telemetry. he is being discharged to home and will complete 3 more days of cefpodoxime to treat UTI. he is discharged to home with no services. discussed with Dr Ferguson [place] Meds and New Rx's Prescriptions: New cefpodoxime 200 mg tablet 200 mg PO BID Qty: 6 0RF Rx Instructions: must administer with a meal/food Continued citalopram 10 mg tablet 10 mg PO DAILY levothyroxine 137 mcg capsule 137 mcg PO DAILY metoprolol succinate 25 mg tablet extended release 24 hr 25 mg PO DAILY pravastatin 20 mg tablet 20 mg PO DAILY quetiapine [Seroquel] 50 mg tablet 50 mg PO QHS quetiapine [Seroquel] 25 mg tablet 25 mg PO DAILY PRN tamsulosin 0.4 mg capsule 0.4 mg PO DAILY No Action Eliquis 5 mg tablet 5 mg PO BID Patient Comments: states not taking. Discharge Instructions Instructions: Urinary Tract Infection in Men (DC) Additional Instructions: Continue usual home medications as previously prescribed Referrals: Luis Fortune [Primary Care Provider] - Activity:: Activity as Tolerated Equipment/Supplies:: No Equipment Needed Diet:: As Tolerated Discharge Orders Discharge Orders: Discharge Order (Routine); Ordered 10/29/22 Ordered By: Hallie Kowalski DS: Summary Time Spent with Patient providing and/or coordinating discharge services: Less than 30 minutes Status at Discharge Functional status at discharge: independent ambulation Overall status at discharge: patient is back to baseline Mental Status: other Speech and Movement: speech and movement normal Mood: congruent mood and other Affect: normal affect Exam Const General: cooperative, comfortable and no acute distress Nutritional Appearance: average body habitus Orientation: alert, awake and oriented x3 HENMT Head: normal to inspection, normocephalic and atraumatic Mouth: oral mucosae normal Chest Chest: normal inspection of the chest Resp Effort & Inspection: normal respiratory effort Auscultation: clear to auscultation bilaterally Cardio Rate: regular rate Rhythm: regular rhythm GI Inspection: normal to inspection Palpation: soft Skin General skin exam: no rashes or lesions noted Neuro General: patient alert, patient awake and patient confused Extrem General: normal to inspection, full ROM and no pedal edema Psych Mental Status: other Speech and Movement: speech and movement normal Mood: congruent mood and other Affect: normal affect DS: Data Vitals/I&O Vitals and I&O: Vital Signs Temperature 36.7 C 10/29/22 11:09 Temperature Source Tympanic 10/29/22 11:09 Pulse 59 L 10/29/22 11:09 Pulse Rhythm Regular 10/29/22 07:16 Pulse 61 10/28/22 09:50 Respiratory Rate 18 10/29/22 11:09 Respiratory Effort Normal, Non-Labored 10/29/22 07:16 Respiratory Depth Normal 10/29/22 07:16 Respiratory Pattern Normal 10/29/22 07:16 Blood Pressure 137/79 10/29/22 11:09 Blood Pressure Mean 96 10/28/22 10:30 Blood Pressure Position Sitting 10/28/22 07:06 Pulse Oximetry 96 10/29/22 11:09 Oxygen Delivery Method Room Air 10/29/22 11:09 Oxygen Flow Rate 0 10/29/22 11:09 Pain Level 0 10/29/22 11:09 Comment RN aware of pt.'s VS. Charge nurse notified of pt.'s VS. 10/29/22 07:55 Intake & Output 10/28/22 10/28/22 10/29/22 11:59 23:59 11:59 Intake Total 550 / 560 10 / 560 421.667 / 421.667 Output Total 300 / 300 0 / 300 0 / 0 Balance 250 / 260 10 / 260 421.667 / 421.667 Weight 79 kg Intake: IV 550 / 560 10 / 560 361.667 / 361.667 Oral 60 / 60 Output: Urine 300 / 300 0 / 300 0 / 0 Other: Urine Color Dark Rama Urine Appearance Clear Clear Comment Bladder scan: 167-275; pT was dry at this time Voiding Methods Diaper Diaper Incontinent Data Completed and Pending Labs on day of discharge: Labs from last 24 hours 10/29/22 06:25 Sodium 143 Potassium 3.7 Chloride 108 H Carbon Dioxide 27.9 Anion Gap 7.1 BUN 18 Creatinine 1.1 Est GFR (CKD-EPI 2020) 70.44 Glucose 90 Calcium 9.4 Creatine Kinase 1126 H 10/28/22 07:53 Urine - Reflex from Ua Urine Culture - Pending Preliminary micro results at discharge 10/28/22 07:53 Urine Culture - Pending Urine - Reflex from Ua PFSH All Active Problems (Updated 10/28/22 @ 14:25 by Nawaf Pak MD) Discharge planning issues (Acute) Urinary tract infection (Acute) Medical History (Updated 10/28/22 @ 14:25 by Nawaf Pak MD) Alzheimer disease Calculus (=stone) Pulmonary embolus Sigmoidoscopy performed Thyroid disease Surgical History (Updated 05/21/22 @ 14:48 by Vangie Barnett) H/O thumb surgery H/O wrist surgery History of esophagogastroduodenoscopy (EGD) Hx of colonoscopy Hx of umbilical hernia repair S/P cystoscopy Social History (Updated 05/23/22 @ 14:22 by Emilee Pollard RN, RN) Smoking/Tobacco Use Status: Former Tobacco Use Smoking risk assessment performed?: Yes Alcohol Intake: former Drug use: Current Sobriety Substance use type: marijuana Household members: spouse Housing: house Time Spent with Patient Time Spent with Patient: <45 minutes Time was spent: preparing to see the patient(eg.review tests), indepentently interpreting results and care coordination
--- NOTE | 2022-10-29 11:45 | PDOC.CMPRO ---
Date of service: 10/29/22 Time of Service: 11:45 Care Management Progress Note Progress Note Text Progress Note Text: Nawaf was admitted last evening with AMS and a Uti. He responded well to treatment in the ED and was kept overnight for observation. He is being discharged this morning and his will transport. No new services required.
--- NOTE | 2022-10-29 11:50 | PT.INTREAT ---
Date of service: 10/29/22 Time of Service: 11:35 PT Notes Visit Reasons: UTI, Altered mental status Inpatient Physical Therapy Treatment Note [facility] Date: 10/29/22 PRECAUTIONS: Fall, standard SUBJECTIVE: Patient long sitting in bed, alert, agreeable to therapy. OBJECTIVE: OSCAR alarm in place and active, bilateral bed rails in place. ? PAIN: none reported, no non-verbal pain signs. VITALS: monitored by nursing staff.? ?? Gait Training ([id number]): Direct one-on-one instruction and skilled instruction in: [x] employing an assistive device [x] turning and movement with proper form [x] Provided verbal cues for equipment management and technique ? GAIT? Assistive Device: FWW ? Weight bearing: full Assist: CGA with occasional min assist to steer FWW, wheelchair follow provided by ECONOMICS INSTRUCTOR ? Distance:? 200 feet ? Deviation: decreased step height, forward flexed posture, patient easily distracted and requiring frequent verbal cues to redirect. ? STAIRS: Ascends 2 six inch stairs, descends 3 four inch stairs with CGA, bilateral hand rails. Step to pattern ascending, step through pattern descending. ? ASSESSMENT:? Patient tolerates therapy well, is agreeable to sit up in recliner at end of treatment for lunch. OSCAR alarm in place and active at end of session. PLAN: Continue global strengthening per plan of care until patient is medically cleared to discharge home with family support. TREATMENT CODE/TIME: 40082 Gait 13 minutes beginning at 11:35
[2022-10-29] MEDS: Enoxaparin 40 MG/0.4 ML SYR SC (12:47)
--- NOTE | 2022-10-29 13:19 | PDOC.CMPRO ---
Date of service: 10/29/22 Time of Service: 13:19 Care Management Progress Note Progress Note Text Progress Note Text: The patient does not meet criteria for inpatient status and the patient's status is changed from inpatient to observation.
--- NOTE | 2022-10-30 09:06 | INDS_ITS ---
PT Notes Visit Reasons: UTI, Altered mental status Inpatient Physical Therapy Discharge Summary Treatment Dates: 10/28/22 - 10/29/22 Referring Doctor: Dr. Pak PT Orders: PT CONSULT: limited ability to ambulate This document serves as a summary of care. No PT services were provided on this date. Patient Profile/Admitting Diagnosis: Patient admitted after presenting to ER with altered mental status in the presence of Alzheimer's dementia. Diagnosed with UTI and admitted for medical management. Patient was seen for 2 sessions of PT intervention over the course of 2 days. He was able to demonstrate safety and mobility sufficient to allow for safe return home with family support. Subjective: none obtained Objective: GAIT?Assistive Device: FWW ?Weight bearing: full ?Assist: CGA with occasional min assist to steer FWW, wheelchair follow provided by HEMATOLOGY TECHNOLOGIST?Distance:? 200 feet ?Deviation: decreased step height, forward flexed posture, patient easily distracted and requiring frequent verbal cues to redirect. ?STAIRS: Ascends 2 six inch stairs, descends 3 four inch stairs with CGA, bilateral hand rails. Step to pattern ascending, step through pattern descending.? Balance: Static Sitting: good Dynamic Sitting: good Static Standing: fair Dynamic Standing: fair Assessment: Patient is a 72 year old male referred to physical therapy services with the diagnosis of UTI. Patient presented with mobility impairments due to acute medical issues combined with underlying Alzheimer's dementia, and demonstrated improved mobility over the course of his treatment. He was able to demonstrate safe, assisted ambulation sufficient to allow for return home with family support, per his baseline. Goals: Goals X1 week 1. Supine-Sit : supervision (not met) 2. Sit-Supine : supervision (not met) 3. Sit-Stand : supervision (progressing toward, with patient able to complete with CGA) 4. Stand-Sit : supervision(progressing toward, with patient able to complete with CGA) 5. Bed-Chair : supervision with FWW(progressing toward, with patient able to complete with CGA) 6. Chair-Bed : supervision with FWW(progressing toward, with patient able to complete with CGA) 7. Gait : supervision with FWWx 50'(progressing toward, with patient able to complete with CGA) Plan of Care/Treatment Plan: D/C from PT services in acute care setting. DISCHARGE RECOMMENDATIONS: Home with family support TREATMENT CODE/TIME: none Neda Benavides, PT, DPT [facility]
== END 2022-10-29 15:07 | disposition home or self-care (01) ==
LOC: ER 10:28 → MS 11:06
PROVIDERS: Emergency Medicine; Admitting Provider Family Medicine; Emergency Provider Student in an Organized Health Care Education/Training Program; PCP Internal Medicine; Visit Provider Family Medicine
DX: N39.0 Urinary tract infection, site not specified (principal); R41.82 Altered mental status, unspecified; G30.9 Alzheimer's disease, unspecified; F02.80 Dementia in other diseases classified elsewhere, unspecified severity, without behavioral disturbance, psychotic disturbance, mood disturbance, and anxiety; E03.9 Hypothyroidism, unspecified; Z79.01 Long term (current) use of anticoagulants; Z79.899 Other long term (current) drug therapy; Z86.711 Personal history of pulmonary embolism; F12.90 Cannabis use, unspecified, uncomplicated; Z87.891 Personal history of nicotine dependence
CPT/HCPCS: 36415; 80048; 80053; 80307; 82550; 82805; 87077; 93005; 96361; 96365; 97116; 97162; 99285; J1650; 70450; 71045; 80320; 80329; 81003; 81015; 83735; 83880; 84443; 84484; 85025; 85610; 85730; 87086; 87186; 93010; 99222; 99238; J0696; J1885